=== PATIENT | female | born 1995 | race Caucasian/White ===

== ENCOUNTER → 2018-06-17 23:59 | Observation (INO) ==
--- NOTE | 2018-06-17 21:19 | OB/GYN Progress Note ---
Date of Encounter: 06/18/18 Time of Encounter: 21:16 - Assessment and Plan (1) 29 weeks gestation of Status: Acute NST reactive CBC/Coags pending; Positive blood type discharge home with labor precautions, bleeding precautions, and kick counts Follow up in office as scheduled and PRN POC per consult with Dr Beyer (2) NST (non-stress test) reactive Status: Acute (3) Struck by dog, initial encounter Status: Acute Subjective - Subjective Principal diagnosis: Hit in abdomen by dog Interval history: Ms Pascual is a at 29 weeks and 0 days that presents to triage with c/o decreased movement x 2 hours after her dog jumped onto her abdomen. She denies any additional or increased cramping; has been c/o alvaro nunez non- painful contractions x 2 weeks. She states after she was hooked up to NST, her baby began to move. She denies headache, vision changes, epigastric pain, leaking of fluid, vaginal bleeding, and vaginal discharge. She has been seen by the midwives for her . Antepartum ROS: no new complaints, no loss of fluid, no vaginal bleeding, no movement normal, no contractions Objective - Vital Signs Vital Signs: Intake and Output 06/17/18 06/17/18 06/17/18 07:59 15:59 23:59 Other: Weight 105.233 kg Patient Weight 06/17/18 23:59 Weight 105.233 kg - Exam FHR: auscultation normal, category 1 (Baseline 145 Cat 1 reactive tracing; contractions ever 2-4 minutes per toco. uterus palpates soft between contractions and contractions palpate mild) Abdomen: Present: normal appearance, soft, gravid Uterus: Present: normal. Absent: firm, tenderness
[2018-06-17 21:46] LABS: Basophils % 0.3 %; Eosinophils # 0.2 K/mcL (0.0-0.6); Eosinophils % 1.3 %; Hematocrit 34.5 % (35.3-44.9); Hemoglobin 11.5 g/dL (11.5-15.4); Immature Granulocytes % 1.5 % (0-4); Lymphocytes % 20.2 %; Mean Corpuscular HGB Conc 33.3 g/dL (31.6-35.5); Mean Corpuscular Hemoglobin 27.3 pg (28.0-33.3); Mean Corpuscular Volume 81.8 fL (83.0-100.0); Mean Platelet Volume 9.1 fL (9.4-12.4); Monocytes % 6.8 %; Neutrophils # 10.4 K/mcL (1.6-8.9); Platelet Count 253 K/mcL (140-400); Red Blood Count 4.22 M/mcL (3.82-4.97); Red Cell Distribution Width 13.5 % (11.5-14.5); Segmented Neutrophils % 69.9 %
[2018-06-17 21:48] LABS: Amphetamine Screen,Urine Negative ng/mL (Cutoff=1000); Barbiturate Screen,Urine Negative ng/mL (Cutoff=200); Benzodiazepines Screen,Urine Negative ng/mL (Cutoff=200); Cannabinoid Screen,Urine Negative ng/mL (Cutoff = 50); Cocaine Screen,Urine Negative ng/mL (Cutoff= 300); Opiate Screen,Urine Negative ng/mL (Cutoff=300); Phencyclidine Screen,Urine Negative ng/mL (Cutoff=25)
[2018-06-17 21:55] LABS: INR 0.9; Prothrombin Time 9.6 Seconds (9.4-12.1)
[2018-06-17 21:57] LABS: Activated Partial Thrombo Time 28.4 Seconds (26.0-36.0)
== END | disposition home or self-care (01) ==
LOC: 1NENULAB
PROVIDERS: ADMIT Advanced Practice Midwife; ATTEND Advanced Practice Midwife

== ENCOUNTER 2018-08-09 08:52 | Inpatient (IN) ==
[2018-08-09] MEDS ORDERED: Naloxone 0.4 MG/ML INJ IVP PRN (09:22)
[2018-08-09] MEDS ORDERED: Ondansetron 4 MG/2 ML VIAL IVP PRN (09:22)
[2018-08-09] MEDS ORDERED: *HR* Nalbuphine 10 MG/ML AMPUL IVP PRN (09:22)
[2018-08-09] MEDS ORDERED: Famotidine 20 MG/2 ML VIAL IVP PRN (09:22)
[2018-08-09] MEDS ORDERED: Metoclopramide 10 MG/2 ML VIAL IVP PRN (09:22)
[2018-08-09] MEDS ORDERED: Ringers Solution, Lactated 1,000 ML IVC SCH (09:30)
[2018-08-09 09:55] LABS: Basophils # 0.1 K/mcL (0.0-0.2); Basophils % 0.4 %; Eosinophils # 0.1 K/mcL (0.0-0.6); Eosinophils % 0.7 %; Hematocrit 34.9 % (35.3-44.9); Hemoglobin 11.6 g/dL (11.5-15.4); Immature Granulocytes % 0.9 % (0-4); Lymphocytes # 2.1 K/mcL (0.6-4.6); Mean Corpuscular HGB Conc 33.2 g/dL (31.6-35.5); Mean Corpuscular Volume 78.3 fL (83.0-100.0); Mean Platelet Volume 9.6 fL (9.4-12.4); Monocytes # 0.9 K/mcL (0.0-1.3); Monocytes % 6.5 %; Neutrophils # 10.5 K/mcL (1.6-8.9); Platelet Count 224 K/mcL (140-400); Red Blood Count 4.46 M/mcL (3.82-4.97); Segmented Neutrophils % 76.5 %
--- NOTE | 2018-08-09 10:08 | Anesthesia Evaluation PreOp ---
Date of Encounter: 08/09/18 Time of Encounter: 10:01 - Past History Planned Operation: Del, G1 induction Cardiac History: Denies any Significant Hx Pulmonary History: Denies Any Significant HX CONFERENCE SERVICES COORDINATOR History: Denies Any Significant HX Other Medical History: Other (? KURT, positive snoring,) Anesthesia History: No Prior Anesthetic Complications, Past Anesthesia (wisdom teeth, no family hx. of comp) Alcohol Use: none Drug use: marijuana Medications and Allergies Vit #108/Iron/FA [ One Tablet] 1 each PO DAILY 06/17/18 [History] Allergy/AdvReac Type Severity Reaction Status Date / Time Penicillins [PCN] Allergy Hives Verified 06/17/18 21:47 Anesthesia Results - Labs 08/09/18 09:30 Anesthesia Exam - HEENT Pupil (Motor): Pupils equal Mallampati: IV Teeth: Normal Oral Opening: Greater than 3 - CONFERENCE SERVICES COORDINATOR LOC: Oriented CONFERENCE SERVICES COORDINATOR Motor: Normal RUE, Normal LUE, Normal RLE, Normal LLE, Normal Face CONFERENCE SERVICES COORDINATOR Sensory: Normal: RUE, LUE, RLE, LLE, Face - Cardiac Rhythm: Regular Murmur: None - Pulmonary Breath Sounds: bilateral Clear Respiratory Effort: Symmetrical Anesthesia Assess/Plan ASA Score: 2 Level of consciousness: Cooperative, Oriented Anesthetic Plan: General, Spinal, Epidural Monitoring Plan: Standard Monitors Recovery Plan: PACU
[2018-08-09 10:14] LABS: Amphetamine Screen,Urine Negative ng/mL (Cutoff=1000); Barbiturate Screen,Urine Negative ng/mL (Cutoff=200); Benzodiazepines Screen,Urine Negative ng/mL (Cutoff=200); Cannabinoid Screen,Urine Negative ng/mL (Cutoff = 50); Cocaine Screen,Urine Negative ng/mL (Cutoff= 300); Opiate Screen,Urine Negative ng/mL (Cutoff=300); Phencyclidine Screen,Urine Negative ng/mL (Cutoff=25)
[2018-08-09] MEDS ORDERED: Epidural Premix (fent/bupiv) 110 ML EP SCH (10:15)
[2018-08-09] MEDS ORDERED: Lidocaine -MPF 2% 5 ML VIAL ONE (10:44)
--- NOTE | 2018-08-09 11:49 | OB/GYN History & Physical ---
Date of Encounter: 08/09/18 Time of Encounter: 11:46 Assessment and Plan (1) 36 weeks gestation of Current visit: Yes Status: Acute (2) Premature rupture of membranes Current visit: Yes Status: Acute Admit to labor and delivery for labor GBS - Patient may have nubain/epidural upon request Consider Pitocin for labor augmentation Anticipate vaginal delivery POC per consult with Dr. Gastelum Qualifiers: PROM onset of labor timing: onset of labor within 24 hours of rupture PROM gestational age: -third trimester Qualified Code(s): O42.013 - premature rupture of membranes, onset of labor within 24 hours of rupture, third trimester History of Present Illness Chief complaint: Leaking fluid HPI: Ms. Pascual is a 23 year old female presents to L & D with C/O leaking fluid beginning at 0700, FM felt per patient report, states pain with contractions. Denies bleeding, headaches, and vision changes, and vaginal bleeding. Was seen by the midwives for her care which was adequate. Uncomplicated . Ultrasound: 08/05/18 - DANUTA 23.1 EFW 3460g 7#10oz 94.8% labs: Blood type: O+, Antibody screen Negative 08/05/18 GBS: negative 01/21/18: UDS Negative 06/10/18: HgB 11.7, HCT 34.7, PLT 251, WBC 12.8 06/10/18: GTT Negative 02/11/18: Hep B surface antigen: Nonreactive 02/11/18: HIV antibody Negative 02/11/18: T. Pallidum Ab Negative 02/11/18: Rubella antibody positive 02/11/18: Varicella antibody positive Past Med Surg Social Fam HX - Past Medical History Medical history: no medical history Psychiatric history: anxiety - Past Surgical History Surgical History: no surgical history - Social History Smoking Status: Former smoker Smokeless Tobacco Status: No Alcohol use: none Drug use: marijuana - Family History Father Adopted: No Living Status: Still Living Hx Family Cancer: Yes (PROSTATE CANCER) Hx Family Endocrine Disorder: Yes (DIABETES) Obstetrical History - Pregnancies : 1 Para: 0 Term: 0 : 0 Ab's: 0 Livin Medications and Allergies Vit #108/Iron/FA [ One Tablet] 1 each PO DAILY 06/17/18 [History] Allergy/AdvReac Type Severity Reaction Status Date / Time Penicillins [PCN] Allergy Hives Verified 06/17/18 21:47 Review of System OB All systems PM: reviewed and no additional remarkable complaints except as stated - Integumentary Integumentary: swelling Exam - Vital Signs Vital signs: Initial Vital Signs Temp Pulse Resp BP Pulse Ox 98.0 F 102 18 140/76 98 08/09/18 09:34 08/09/18 09:34 08/09/18 09:34 08/09/18 09:34 08/09/18 09:34 - Constitutional Constitutional: well developed, well nourished, no acute distress, average body habitus - HEENT HEENT: Normocephaly, Mucus Membranes Moist - Neck Neck exam: full ROM, normal inspection - Lungs Respiratory exam: accessory muscle use, CTAB - Cardiovascular Cardiovascular exam: RRR, +S1, +S2 - Breasts Breast: bilateral: normal - Abdomen Abdomen: Present: bowel sounds normal, gravid, non tender. Absent: guarding noted, splenomegaly, mass - Extremities Extremities exam: full ROM, normal capillary refill, normal inspection, pedal edema, radial pulses palpable and symmetrical Deep Tendon Reflex Grade: 2+ Normal - Vulva Vulva: bilateral: normal - Vagina Vagina: Present: normal moisture - Cervix Cervix: Absent: lesion Dilation: 3 Effacement: 80 Station: -1 - Uterus Uterus exam: Present: normal size, normal contour. Absent: tender - Anus/Rectum Anus/Rectum: Present: normal perianal skin - Comments Comments: FHTs 130's Contractions every 4-5 minutes Grossly ruptured with moderate amount of clear fluid; nitrazine negative Results Result Diagrams: 08/09/18 09:30 Abnormal lab results WBC 13.7 K/mcL (4.3-11.1) H 08/09/18 09:30 Hct 34.9 % (35.3-44.9) L 08/09/18 09:30 MCV 78.3 fL (83.0-100.0) L 08/09/18 09:30 MCH 26.0 pg (28.0-33.3) L 08/09/18 09:30 Neutrophils # 10.5 K/mcL (1.6-8.9) H 08/09/18 09:30 All other labs normal. - VTE Reasons for not Prescribing Prophylaxis: Treatment not Indicated - Low risk for VTE
--- NOTE | 2018-08-09 13:27 | Anesthesia Procedures ---
Addendum entered and electronically signed by Kal Aaron CRNA 08/10/18 01:48: Infant Delivery Date: 08/09/18 Infant Delivery Time: 21:54 Original Note: Date of Encounter: 08/09/18 Time of Encounter: 13:02 Procedures: Anesthesia - Epidural/Spinal Patient ID/Chart reviewed: Yes Patient examined: Yes OB Eval: Gestational age: term OB Eval: : 1 OB Eval: Contractions: Non-stressed pattern Consent Obtained: Yes Supplemental Oxygen: None/Room Air Site Prep: Aseptic Technique, Sterile prep and drape, 0.5% Chlorhexidine/Alcohol Patient position: upright Local Anesthetic: Lidocaine 1% Amount of Local Anesthetic used: 2 Touhy Needle Gauge: 18 Touhy Needle Depth (cm): 8 Catheter Depth at Skin (cm): 12 Test Dose (1.5% Lido + Epi): Volume given (mls): 4 Test Dose Result: Negative Loading Dose: Other: 10ml from solution Loading Dose Administered: Thru Catheter Infusion Med: 0.125% Bupivacaine w/ 2 mcg/ml Fentanyl Infusion Rate (mls/hr): [address]: Tegaderm, Tape Interspace Used: L3-L4 Loss of Resistance (PERLA): Yes (saline) Blood: No CSF: Yes (purposeful with 27g pencan only) Paresthesia: No Procedure: vss though out procedure, FHR stable per RN's
--- NOTE | 2018-08-09 17:09 | OB Labor Progress Note ---
Date of Encounter: 08/09/18 Time of Encounter: 17:04 Labor Progress Note - Subjective Subjective: Patient resting comfortably in bed. Denies pain and pressure. Denies headache and vision changes. - Vital Signs Vital Signs: VSS - Cervix Cervix: 6/90%/-1 - Heart Tones Heart Tones: 140 - [place]: Ctx every 3 min apart - Plan Plan: Continue routine labor management. GBS - Consider pitocin for labor augmentation Patient may have Epidural upon request Anticipate vaginal delivery POC per consult with Dr. Gastelum
[2018-08-09] MEDS ORDERED: Oxytocin 20 units/ LR 1000 mL 20 UNIT/1,000 ML BAG IVC ONE ×2 (19:23→23:16)
--- NOTE | 2018-08-09 22:48 | OB/GYN Procedure Note ---
Delivery - Delivery Date: 08/09/18 Provider: Rosaura Lyon Intrapartum events: none Delivery induction: none Delivery monitor: external FHT, external uterine Anesthesia: epidural Quantitated Blood Loss: 200 - Infant (s) Infant A Delivery Date: 08/09/18 Infant Delivery Time: 21:54 Presentation: vertex Position: RADHA Route of delivery: Gender: Female Viability: Viable Pounds: 7 Ounces: 13 Weight Gram: 3.555 kg at 1 minute: 8 at 5 mins: 9 Shoulder Dystocia: not encountered Specimens collected: cord blood Placenta: spontaneous Cord: 3 umbilical vessels - Repair Episiotomy: none Laceration Description: Perineal - 2nd Degree - Complications Delivery complications: none Delivery comments: Patient progressed to complete and began coached pushing to of viable, vigorous female infant in the RADHA position. No nuchal cord, no shoulder dystocia, and no meconium encountered. Infant placed on maternal abdomen, warmed, dried, and stimulated. Cord double clamped and cut with the assistance of the FOB after pulsations ceased. Apgars 8 and 9 at one and five minutes of age respectively. Placenta delivered spontaneously and appears grossly intact with 3 vessel cord. Upon perineal inspection, a hemostatic left periurethral laceration and a second degree laceration were noted. The periurethral was left to heal by second intention. The second degree was repaired in the usual fashion with 2-0 monocryl. EBL 200mL. Fundus firm and at U after repair with scant lochia. Infant and mother stable in recovery for [address] Gastelum notified of delivery. - Disposition Mom disposition: stable in LDR disposition: stable in LDR
[2018-08-09] MEDS ORDERED: Acetaminophen 325 MG TABLET PO PRN (23:16)
[2018-08-09] MEDS ORDERED: Benzocaine/Menthol 56 GM AEROSOL SPRAY TP PRN (23:16)
[2018-08-09] MEDS ORDERED: Oxytocin 20 units/ LR 1000 mL 20 UNIT/1,000 ML BAG IVC SCH (23:16)
[2018-08-10] MEDS: Ibuprofen 600 MG TABLET PO PRN ×4 (01:26→23:36)
[2018-08-10] MEDS: Prenatal Vit/FA 1 EACH TABLET PO SCH (08:20)
--- NOTE | 2018-08-10 11:14 | OB/GYN Progress Note ---
Date of Encounter: 08/10/18 Time of Encounter: 10:15 - Assessment and Plan (1) Vaginal delivery Current Visit: Yes Status: Acute Pt meeting PPD1 milestones. Anticipate discharge home in am. (2) Breast feeding status of mother Current Visit: Yes Status: Acute consult. Pt has breast pump at home. Subjective - Subjective Interval history: Pt reports feeling well today. She states baby is not latching well so she plans to obtain assistance with today. Patient reports: appetite normal, voiding normally, pain well controlled, ambulating normally [place]: doing well, other (not latching well) Objective - Latest Vital Signs Latest vital signs: Vital Signs Temp Pulse Resp BP Pulse Ox 08/10/18 09:18 98.9 F 110 14 130/79 97 08/10/18 02:40 98.0 F 104 18 124/65 99 08/10/18 01:40 98.8 F 104 16 134/70 97 08/10/18 00:40 98.1 F 101 14 130/79 100 08/10/18 00:22 98.3 F 85 18 129/73 99 Intake and Output 08/09/18 08/10/18 08/10/18 23:59 07:59 15:59 Intake Total 650 / 650 Output Total 600 / 600 300 / 300 650 / 650 Balance -600 / -600 -300 / -300 0 / 0 Intake: IV Fluids 650 / 650 Pitocin 20 unit In 1,000 ml @ 650 / 650 125 mls/hr IVC .Q8H [facility] Rx#: [id number] Output: Urine 300 / 300 650 / 650 Estimated Blood Loss 200 / 200 Catheter 400 / 400 Other: Weight 111.9 kg Patient Weight 08/10/18 23:59 Weight 111.9 kg - Exam Lungs: bilateral: normal Chest: Normal S1, Normal S2 Extremities: Present: edema (1+ bilaterally) Abdomen: Present: soft. Absent: tenderness Uterus: Present: firm Uterus Position: 1 Finger Below Umbilicus
[2018-08-11] MEDS: Ibuprofen 600 MG TABLET PO PRN (06:55)
[2018-08-11 08:39] VITALS: BP 119/79
[2018-08-11] MEDS: Prenatal Vit/FA 1 EACH TABLET PO SCH (09:02)
--- NOTE | 2018-08-11 09:34 | Discharge Summary ---
Date of Encounter: 08/11/18 Time of Encounter: 09:31 - Discharge Diagnosis (1) Breast feeding status of mother Priority: Secondary Status: Acute Comments: support prn (2) Vaginal delivery Priority: Primary Status: Acute Comments: Continue routine care discharge home today follow up with CNM in 4-6 weeks - Discharge Medications Prescriptions: New Ibuprofen [Motrin] 600 mg PO Q6HR PRN #60 tablet PRN Reason: Cramping Benzocaine/Menthol [place] [Dermoplast [place]] 1 appl TP QID PRN aerosol PRN Reason: See Comments Docusate [Colace] 100 mg PO BID #30 capsule Continue Vit #108/Iron/FA [ One Tablet] 1 each PO DAILY Home Medications: Vit #108/Iron/FA [ One Tablet] 1 each PO DAILY 06/17/18 [History] Benzocaine/Menthol [place] [Dermoplast [place]] 1 appl TP QID PRN aerosol 08/11/18 [Rx] Docusate [Colace] 100 mg PO BID #30 capsule 08/11/18 [Rx] Ibuprofen [Motrin] 600 mg PO Q6HR PRN #60 tablet 08/11/18 [Rx] Allergies/Adverse Reactions: Allergy/AdvReac Type Severity Reaction Status Date / Time Penicillins [PCN] Allergy Hives Verified 06/17/18 21:47 Data Procedures and tests throughout hospitalization: Laboratory Tests 08/09/18 08/09/18 09:30 09:33 WBC 13.7 H RBC 4.46 Hgb 11.6 Hct 34.9 L MCV 78.3 L MCH 26.0 L MCHC 33.2 RDW 14.0 Plt Count 224 MPV 9.6 Immature Gran % 0.9 Seg Neutrophils % 76.5 Lymphocytes % 15.0 Monocytes % 6.5 Eosinophils % 0.7 Basophils % 0.4 Neutrophils # 10.5 H Lymphocytes # 2.1 Monocytes # 0.9 Eosinophils # 0.1 Basophils # 0.1 Urine Opiates Screen Negative Ur Barbiturates Screen Negative Ur Phencyclidine Scrn Negative Ur Amphetamines Screen Negative U Benzodiazepines Scrn Negative Urine Cocaine Screen Negative U Marijuana (THC) Screen Negative Ur Drug Screen Interp See Below Date of admission: 08/09/18 08:52 Primary care physician: Tali Max CNP Consults: 08/09/18 23:16 Consult to Brine Mixer Operator [CONS] Routine Comment: Vaginal delivery, consult needed Discharging clinician: Kelli Montana Anticipated date of discharge: 08/11/18 - Patient Status Disposition: Home, Self-Care Condition: Good Functional capacity at discharge: independent ambulation - Discharge Instructions Follow Up With: Tali Max, COFFEE BAR ATTENDANT [Primary Care Provider] - Kelli Montana CNM [Non-Partnered Physician] - - Diet and Activity Activity: increase activity as tolerated Diet: regular diet Hospital Course Reason for admission: active labor, rupture of membranes Delivery: Episiotomy: none Laceration: 2nd degree Other procedures: none complications: none Discharge diagnosis: IUP at term delivered baby: female (breast feeding) Time Attestation: Total time spent providing and/or coordinating discharge services: Time Spent: Less than 30 minutes Exam - Constitutional Vitals: Temp Pulse Resp BP Pulse Ox 98.2 F 106 16 119/79 98 08/11/18 08:38 08/11/18 08:38 08/11/18 08:38 08/11/18 08:38 08/11/18 03:35 General appearance IM: A&O X 3, pleasant, answers questions appropriately - Respiratory Respiratory exam: Present: CTAB - Cardiovascular Cardiovascular exam IM: Present: RRR - GI/Abdominal GI/Abdominal exam IM: normal bowel sounds - Uterine Tone: Firm Uterus Position: At Umbilicus, Midline - Extremities Exam Extremities exam IM: Present: full ROM, normal capillary refill, normal inspection - Neurological Exam Neurological exam: alert, oriented X3, reflexes normal
== END 2018-08-11 10:03 | disposition home or self-care (01) | DRG 807 ==
LOC: 1NENULAB → OBSVTOIN 08:52 → 1NENUOBS 08-10 00:48
PROVIDERS: ADMIT Advanced Practice Midwife; ATTEND Advanced Practice Midwife